=== PATIENT | female | born 1985 | race Caucasian/White ===

== ENCOUNTER 2017-11-25 22:24 | Emergency (ER) | payer MEDICAID ==
[~2017-11-25] VITALS: Ht 177.8 cm; Wt 88.0 kg
[2017-11-25 22:59] LABS: MICROSCOPIC AUTO
[2017-11-25 23:02] LABS: CULTURE INDICATED? YES
[2017-11-26 00:17] LABS: HCG UR SG 1.023 (1.003-1.030)
[2017-11-26 00:57] VITALS: BP 128/81
== END 2017-11-26 00:59 | disposition home or self-care (01) ==
LOC: ED 11-26 00:43
DX: N30.00 Acute cystitis without hematuria (principal)
CPT/HCPCS: 81001; 81025; 87077; 87086; 87186; 99284

== ENCOUNTER 2018-07-28 23:04 | Emergency (ER) | payer MEDICAID ==
[~2018-07-28] VITALS: Ht 177.8 cm; Wt 91.5 kg
[2018-07-28 23:15] VITALS: BP 133/76
== END 2018-07-28 23:53 | disposition home or self-care (01) ==
LOC: ED 23:33
DX: S39.012A Strain of muscle, fascia and tendon of lower back, initial encounter (principal); M54.31 Sciatica, right side; F17.200 Nicotine dependence, unspecified, uncomplicated; X50.9XXA Other and unspecified overexertion or strenuous movements or postures, initial encounter; Y93.89 Activity, other specified; Y99.8 Other external cause status; Y92.89 Other specified places as the place of occurrence of the external cause
CPT/HCPCS: 99281